=== PATIENT | male | born 1990 | race African-American/Black ===

== ENCOUNTER 2022-02-10 23:33 | Emergency (ER) | payer SELFPAY ==
[~2022-02-10] VITALS: Ht 170.2 cm; Wt 75.0 kg
[2022-02-11 00:11] VITALS: BP 130/93
[2022-02-11] MEDS ORDERED: ALBUTEROL (0.083%) 2.5MG/3ML NEB HHN STA (00:15)
[2022-02-11] MEDS ORDERED: IPRATROPIUM BROMIDE (0.02%) 0.5MG/2.5ML NEB HHN STA (00:15)
[2022-02-11] MEDS ORDERED: ALBU6.7H9 INH (01:27)
== END 2022-02-11 02:50 | disposition home or self-care (01) ==
LOC: ER 23:33
DX: J06.9 Acute upper respiratory infection, unspecified (principal); J45.909 Unspecified asthma, uncomplicated; B34.9 Viral infection, unspecified; F20.9 Schizophrenia, unspecified; Z20.822 Contact with and (suspected) exposure to COVID-19
CPT/HCPCS: 71045; 87426; 94640; 99284; Z7610

== ENCOUNTER 2022-02-11 06:34 | Emergency (ER) | payer SELFPAY ==
[~2022-02-11] VITALS: Ht 182.9 cm; Wt 90.0 kg
[~2022-02-11 06:34] MED LIST: ALBU6.7H9 INH
[2022-02-11 08:00] VITALS: BP 128/72
== END 2022-02-11 08:58 | disposition left against medical advice (07) ==
LOC: ER 06:34
DX: R05.9 Cough, unspecified (principal); J45.909 Unspecified asthma, uncomplicated; F20.9 Schizophrenia, unspecified
CPT/HCPCS: 99281